=== PATIENT | male | born 1945 | race Caucasian/White ===

== ENCOUNTER 2016-06-06 09:03 | Emergency (ER) | payer MEDICARE, OTHER ==
[~2016-06-06] VITALS: Ht 424.2 cm; Wt 80.0 kg
[~2016-06-06 09:03] MED LIST: FLEXERIL PO; LISINOPRIL5 MG PO; MOTRIN800 MG PO; TESSALON PER100 MG PO; ZITHROMAX250 MG PO
[2016-06-06] MEDS ORDERED: TOBRAMYCIN0.3 % OS (09:27)
[2016-06-06 10:00] VITALS: BP 132/70
== END 2016-06-06 10:00 | disposition home or self-care (01) ==
LOC: ED 09:03
DX: H11.422 Conjunctival edema, left eye (principal); H02.844 Edema of left upper eyelid; I10 Essential (primary) hypertension

== ENCOUNTER 2018-01-11 07:33 | Emergency (ER) | payer MEDICARE, OTHER ==
[~2018-01-11] VITALS: Ht 177.8 cm; Wt 65.0 kg
[~2018-01-11 07:33] MED LIST changes: +TOBRAMYCIN0.3 % OS
[2018-01-11] MEDS ORDERED: FLEXERIL PO (07:58)
[2018-01-11] MEDS ORDERED: TORADOL PO (07:58)
[2018-01-11] MEDS ORDERED: MEDDOSEPAK PO (07:58)
[2018-01-11 08:16] VITALS: BP 162/87
[2018-01-12] MEDS ORDERED: LORTAB 1010 MG PO (01:53)
== END 2018-01-11 08:36 | disposition designated cancer center or children's hospital (05) ==
LOC: ED 07:33
DX: M54.41 Lumbago with sciatica, right side (principal); I10 Essential (primary) hypertension

== ENCOUNTER 2018-01-12 00:07 | Emergency (ER) | payer MEDICARE, OTHER ==
[~2018-01-12] VITALS: Ht 177.8 cm; Wt 83.0 kg
[~2018-01-12 00:07] MED LIST changes: +MEDDOSEPAK PO; +TORADOL PO
[2018-01-12] MEDS ORDERED: LORTAB 1010 MG PO (01:53)
[2018-01-12 02:10] VITALS: BP 158/67
== END 2018-01-12 02:00 | disposition home or self-care (01) ==
LOC: ED 00:07
DX: M54.16 Radiculopathy, lumbar region (principal); I10 Essential (primary) hypertension

== ENCOUNTER 2021-10-24 08:10 | Emergency (ER) | payer MEDICARE, OTHER ==
[~2021-10-24] VITALS: Ht 177.8 cm; Wt 91.6 kg
[~2021-10-24 08:10] MED LIST changes: +LORTAB 1010 MG PO
[2021-10-24 08:19] VITALS: BP 156/85
[2021-10-24 08:30] VITALS: BP 142/87
[2021-10-24] MEDS ORDERED: LEXAPRO5 MG PO (09:52)
[2021-10-24] MEDS ORDERED: CITRATE OF MEGNESIA PO (10:09)
[2021-10-24 10:24] VITALS: BP 142/87
== END 2021-10-24 10:35 | disposition home or self-care (01) ==
LOC: ED 08:10
DX: K59.00 Constipation, unspecified (principal); I10 Essential (primary) hypertension; Z86.010 Personal history of colon polyps